=== PATIENT | female | born 1945 | race Caucasian/White ===

== ENCOUNTER 2017-05-26 12:16 | Inpatient (IN) | payer OTHER ==
[~2017-05-26] VITALS: Ht 167.6 cm; Wt 85.5 kg
[2017-05-26] MEDS ORDERED: SEROQUEL100 MG PO (12:36)
[2017-05-26 13:34] LABS: BASOPHIL % 0.4 % (0-2); PLATELET COUNT 267 x10^3mcL (130-400); RED CELL DISTRIBUTION WIDTH 13.1 % (11.5-14.5)
[2017-05-26 14:15] LABS: CALCIUM 10.9 mg/dL (8.5-10.1); CARBON DIOXIDE 27.9 mmol/L (21-32); CHLORIDE SERUM 105 mmol/L (98-107); CREATININE SERUM 0.7 mg/dL (0.6-1.0); GLUCOSE SERUM 119 mg/dL (74-106); POTASSIUM SERUM 4.5 mmol/L (3.5-5.1); SODIUM SERUM 140 mmol/L (136-145)
[2017-05-26 14:20] LABS: ALBUMIN 3.4 g/dL (3.4-5.0); ALKALINE PHOSPHATASE 96 U/L (46-116); ALT/SGPT 37 U/L (14-59); AST/SGOT 21 U/L (15-37); BILIRUBIN TOTAL 0.1 mg/dL (0.20-1.00)
[2017-05-26] MEDS ORDERED: ATORVASTATIN CA20 M1 PO (14:37)
[2017-05-26] MEDS ORDERED: BENAZEPRIL HYDR10 M1 PO (14:38)
[2017-05-26 15:17] LABS: CHOLESTEROL/HDL RATIO 3.3
[2017-05-26 15:22] LABS: T3 TOTAL 1.02 ng/mL
[2017-05-26 15:25] LABS: FREE T4 1.03 ng/dL (0.76-1.46); FREE THYROXINE INDEX 2.8 ug/dL (1.4-4.5); T4(THYROXINE) 8.1 ug/dL (4.7-13.3)
[2017-05-26] MEDS ORDERED: AMBIEN5 MG PO ×2 (15:48→15:50)
[2017-05-26] MEDS ORDERED: TRAZODONE50 M1 PO (15:50)
[2017-05-26] MEDS ORDERED: KEFLEX500 M1 PO (15:51)
[2017-05-26] MEDS ORDERED: BENADRYL ALLERG25 M1 PO ×2 (15:51→16:20)
[2017-05-26 15:59] VITALS: BP 150/63
[2017-05-26 16:22] VITALS: Ht 167.6 cm; Wt 85.5 kg
[2017-05-26 17:19] VITALS: BP 171/71
[2017-05-26 19:23] LABS: microscopic required? NO
[2017-05-26 19:33] LABS: urine erythrocyte NEGATIVE (NEGATIVE)
[2017-05-26 19:40] LABS: AMPHETAMINE QUAL UR NONE DETECTED (NEG <=1000)
[2017-05-26 20:46] VITALS: BP 167/63
[2017-05-27 09:04] VITALS: BP 119/56
[2017-05-27 13:02] VITALS: BP 139/66
[2017-05-27 21:00] VITALS: BP 140/60
[2017-05-27 21:27] LABS: BASOPHIL % 0.4 % (0-2); PLATELET COUNT 254 x10^3mcL (130-400)
[2017-05-27 21:40] LABS: CALCIUM 9.8 mg/dL (8.5-10.1); CARBON DIOXIDE 25.3 mmol/L (21-32); CHLORIDE SERUM 111 mmol/L (98-107); CREATININE SERUM 0.8 mg/dL (0.6-1.0); GLUCOSE SERUM 132 mg/dL (74-106); MAGNESIUM 1.9 mg/dL (1.8-2.4); PHOSPHOROUS 3.1 mg/dL (2.5-4.9); POTASSIUM SERUM 4.3 mmol/L (3.5-5.1); SODIUM SERUM 145 mmol/L (136-145)
[2017-05-28 05:25] VITALS: BP 117/64
[2017-05-28 05:50] LABS: BASOPHIL % 0.5 % (0-2); PLATELET COUNT 225 x10^3mcL (130-400)
[2017-05-28 06:24] LABS: CALCIUM 9.8 mg/dL (8.5-10.1); CARBON DIOXIDE 26.9 mmol/L (21-32); CHLORIDE SERUM 107 mmol/L (98-107); CREATININE SERUM 0.9 mg/dL (0.6-1.0); GLUCOSE SERUM 147 mg/dL (74-106); PHOSPHOROUS 3.6 mg/dL (2.5-4.9); POTASSIUM SERUM 3.9 mmol/L (3.5-5.1); SODIUM SERUM 142 mmol/L (136-145)
[2017-05-28 09:44] VITALS: BP 143/76
[2017-05-28] MEDS ORDERED: ECO81 PO (13:24)
[2017-05-28 14:11] VITALS: BP 155/65
[2017-05-28 14:42] VITALS: BP 155/65
[2017-05-28] MEDS ORDERED: KEFLEX500 M1 PO (16:34)
[2017-05-28] MEDS ORDERED: LAC PO (18:05)
== END 2017-05-28 18:04 | disposition home or self-care (01) | DRG 205 ==
LOC: EDBD 12:16 → ED 12:16 → DU 14:14
PROVIDERS: Emergency Medicine; ADMIT Family Medicine
DX: M94.0 Chondrocostal junction syndrome [Tietze] (principal); N17.0 Acute kidney failure with tubular necrosis; N39.0 Urinary tract infection, site not specified; I69.354 Hemiplegia and hemiparesis following cerebral infarction affecting left non-dominant side; R73.03 Prediabetes; K59.00 Constipation, unspecified; G47.00 Insomnia, unspecified; F31.9 Bipolar disorder, unspecified; Z68.30 Body mass index [BMI] 30.0-30.9, adult; Z85.3 Personal history of malignant neoplasm of breast; Z90.13 Acquired absence of bilateral breasts and nipples; Z92.3 Personal history of irradiation
CPT/HCPCS: 82962; 83880; 84439; J0696; J2270; J7030; Q0092